=== PATIENT | female | born 1950 | race Caucasian/White ===

== ENCOUNTER 2017-09-27 05:25 | Day surgery (SDC) | payer MEDICARE ==
[~2017-09-27] VITALS: Ht 160 cm; Wt 54.4 kg
[~2017-09-27 05:25] MED LIST: IBUP200T64 PO; MELA1TAB6 PO; METAMUCIL PO; MULT-516 PO; VITAMIN B12 PO
[2017-09-27 06:17] VITALS: BP 140/85
[2017-09-27] MEDS ORDERED: ESTR30CR VG (06:17)
[2017-09-27] MEDS ORDERED: LACTATED RINGERS 1,000 ML IV SCH (06:18)
[2017-09-27] MEDS ORDERED: BUPIVACAINE/PF 0.5% ONE (07:03)
[2017-09-27] MEDS ORDERED: THROMBIN 5,000 UNIT VIAL TP ONE (07:04)
[2017-09-27] MEDS ORDERED: BACITRACIN 50,000 UNIT ONE (07:04)
[2017-09-27] MEDS ORDERED: EPINEPHRINE 1 MG/ML, 1ML ONE (07:04)
[2017-09-27] MEDS ORDERED: ROCURONIUM 10 MG/ML,10ML ONE ×2 (07:05)
[2017-09-27] MEDS ORDERED: FENTANYL PF 250 MCG/5ML ONE (07:05)
[2017-09-27] MEDS ORDERED: MIDAZOLAM 1 MG/ML, 2ML ONE (07:05)
[2017-09-27] MEDS ORDERED: SUCCINYLCHOLINE 20 MG/ML, 10ML ONE (07:05)
[2017-09-27] MEDS ORDERED: SCOPOLAMINE PATCH, 1.5MG PATCH.TD72 TD ONE ×3 (07:15→11:30)
[2017-09-27] MEDS ORDERED: SCOPOLAMINE PATCH, 1.5MG PATCH.TD72 TD STA (07:16)
[2017-09-27] MEDS ORDERED: PROPOFOL 10 MG/ML, 20ML ONE (07:37)
[2017-09-27] MEDS ORDERED: ONDANSETRON 2MG/ML, 2ML ONE (07:37)
[2017-09-27] MEDS ORDERED: CEFAZOLIN 1,000 MG ONE (07:37)
[2017-09-27] MEDS ORDERED: DEXAMETHASONE 4 MG/ML, 1ML ONE (07:37)
[2017-09-27] MEDS ORDERED: LABETALOL 5MG/ML, 20ML IV PRN (08:30)
[2017-09-27] MEDS ORDERED: hydrALAzine 20 MG/ML, 1ML IV PRN (08:30)
[2017-09-27] MEDS ORDERED: HYDROmorphone 1 MG/ML, 1ML IV PRN (08:30)
[2017-09-27] MEDS ORDERED: METOCLOPRAMIDE 5 MG/ML, 2ML IV PRN (08:30)
[2017-09-27] MEDS ORDERED: ONDANSETRON 2MG/ML, 2ML IVPush PRN (08:30)
[2017-09-27] MEDS ORDERED: FENTANYL PF 100 MCG/2ML IV PRN (08:30)
[2017-09-27] MEDS ORDERED: OXYcodone 5 MG/5 ML ORAL.SOL UDC PO PRN (08:30)
[2017-09-27] MEDS ORDERED: ACETAMINOPHEN 325 MG TABLET PO PRN (08:30)
[2017-09-27] MEDS ORDERED: ACETAMINOPHEN 650 MG/20.3 ML UDC ONE (09:59)
[2017-09-27] MEDS ORDERED: ACETAMINOPHEN 325 MG TABLET ONE (09:59)
[2017-09-27] MEDS ORDERED: OXYcodone 5 MG/5 ML ORAL.SOL UDC ONE (09:59)
[2017-09-27] MEDS ORDERED: methylPREDNISolone *ACETATE* 40 MG/ML IM ONE ×2 (10:00→11:00)
[2017-09-27] MEDS ORDERED: METHOCARBAMOL 1,000 MG in DEXTROSE 5% 100 ML IV ONE (10:00)
== END 2017-09-27 12:20 ==
LOC: OUT 05:25
PROVIDERS: ATTEND Neurological Surgery
DX: M51.16 Intervertebral disc disorders with radiculopathy, lumbar region (principal)
CPT/HCPCS: 63030; 72100; J0171; J0330; J0690; J1030; J1100; J2250; J2405; J2704; J2800; J3010; J3490; J7120